=== PATIENT | male | born 1955 | race Caucasian/White ===

== ENCOUNTER 2019-11-24 17:45 | Inpatient (IN) ==
[2019-11-24 19:14] LABS: Hematocrit 38.6 % (37.5-50.1); Hemoglobin 13.2 g/dL (12.9-16.9); Mean Corpuscular HGB Conc 34.2 g/dL (31.6-35.5); Mean Corpuscular Hemoglobin 29.6 pg (28.0-33.3); Mean Corpuscular Volume 86.5 fL (83.0-100.0); Mean Platelet Volume 8.7 fL (9.4-12.4); Platelet Count 168 K/mcL (140-400); Red Blood Count 4.46 M/mcL (4.19-5.50); Red Cell Distribution Width 12.5 % (11.5-14.5)
[2019-11-24 19:31] LABS: Calcium 8.1 mg/dL (8.6-10.3); Potassium 2.9 mEq/L (3.5-5.1)
[2019-11-24] MEDS ORDERED: Potassium Effervescent 25 MEQ TABLET.EFF PO ONE (19:38)
[2019-11-24] MEDS ORDERED: Naloxone 0.4 MG/ML INJ IVP PRN (20:02)
[2019-11-24] MEDS ORDERED: Dexamethasone 4 MG/ML VIAL IVP ONE (20:02)
[2019-11-24] MEDS: Acetaminophen 325 MG TABLET PO PRN (20:23)
[2019-11-24] MEDS: Azithromycin 500 MG in 0.9 % Sodium Chloride 250 ML IVPB SCH (21:38)
[2019-11-24] MEDS: cefTRIAXone 1,000 MG in 0.9 % Sodium Chloride Mini Bag 100 ML IVPB SCH (21:39)
[2019-11-24] MEDS: *HR* Promethazine 25 MG/ML VIAL IVP PRN (22:48)
[2019-11-25] MEDS ORDERED: 0.9 % Sodium Chloride 1,000 ML IVC ONE (00:34)
[2019-11-25 04:01] LABS: Magnesium 2.3 mg/dL (1.6-2.6)
[2019-11-25 04:03] LABS: Troponin I < 0.03 ng/mL (< 0.04)
[2019-11-25 05:50] LABS: Basophils % 0.1 %; Hematocrit 39.1 % (37.5-50.1); Hemoglobin 13.2 g/dL (12.9-16.9); INR 1.1; Immature Granulocytes % 0.5 % (0-4); Lymphocytes # 0.5 K/mcL (0.6-4.6); Lymphocytes % 6.4 %; Mean Corpuscular HGB Conc 33.8 g/dL (31.6-35.5); Mean Corpuscular Hemoglobin 29.9 pg (28.0-33.3); Mean Corpuscular Volume 88.7 fL (83.0-100.0); Mean Platelet Volume 8.8 fL (9.4-12.4); Monocytes # 0.1 K/mcL (0.0-1.3); Monocytes % 1.4 %; Neutrophils # 7.4 K/mcL (1.6-8.9); Platelet Count 171 K/mcL (140-400); Prothrombin Time 12.4 Seconds (9.4-12.1); Red Blood Count 4.41 M/mcL (4.19-5.50); Red Cell Distribution Width 12.6 % (11.5-14.5); Segmented Neutrophils % 91.6 %; White Blood Count 8.1 K/mcL (4.3-11.1)
[2019-11-25 06:10] LABS: Albumin 3.6 g/dL (3.5-5.7); Albumin/Globulin Ratio 1.1 (1.1-2.2); Bilirubin,Total 0.5 mg/dL (0.3-1.0); Calcium 7.9 mg/dL (8.6-10.3); Globulin 3.2 g/dL (2.4-3.5); Phosphorous 2.3 mg/dL (2.7-4.5); Potassium 3.2 mEq/L (3.5-5.1); Total Protein 6.8 g/dL (6.4-8.9)
[2019-11-25 06:22] LABS: Thyroid Stimulating Hormone 0.7 mcIU/mL (0.340-5.600)
[2019-11-25] MEDS ORDERED: amLODIPine 5 MG TABLET PO SCH (09:00)
[2019-11-25] MEDS: ALPRAZolam 0.5 MG TABLET PO SCH ×2 (09:04→20:45)
[2019-11-25] MEDS: Dexamethasone 4 MG/ML VIAL IVP SCH (09:04)
[2019-11-25 10:43] LABS: ABG Base Excess 0 mEq/L (-2 to 3); ABG HCO3 25 mEq/L (21-27); ABG Oxygen Saturation 88 % (95-98); ABG PCO2 39 mmHg (35-45); ABG PH 7.41 pH Units (7.32-7.45); ABG PO2 54 mmHg (85-104); ABG TCO2 26 mEq/L (20-26)
[2019-11-25] MEDS ORDERED: 0.45 % Sodium Chloride w/KCl 20 MEQ/1,000 ML MLS IVC SCH (12:00)
[2019-11-25] MEDS: polyethylene glycoL 3350 17 GM POWD.PACK PO SCH ×4 (14:05→21:25)
[2019-11-25] MEDS: *HR* Heparin 5,000 UNIT/ML VIAL SQ SCH ×2 (14:07→21:58)
[2019-11-25] MEDS ORDERED: Remdesivir 200 MG in 0.9 % Sodium Chloride 210 ML IVPB ONE (18:00)
[2019-11-25] MEDS: cefTRIAXone 1,000 MG in 0.9 % Sodium Chloride Mini Bag 100 ML IVPB SCH (20:46)
[2019-11-25] MEDS ORDERED: traZODone 50 MG TABLET PO SCH (21:00)
[2019-11-25] MEDS: Azithromycin 500 MG in 0.9 % Sodium Chloride 250 ML IVPB SCH (21:57)
[2019-11-25] MEDS: Acetaminophen 325 MG TABLET PO PRN (22:05)
[2019-11-26] MEDS: *HR* Heparin 5,000 UNIT/ML VIAL SQ SCH ×3 (04:59→22:12)
[2019-11-26 06:40] LABS: INR 1.1; Prothrombin Time 12.2 Seconds (9.4-12.1)
[2019-11-26 06:44] LABS: Basophils % 0.1 %; Hematocrit 35.6 % (37.5-50.1); Hemoglobin 12.2 g/dL (12.9-16.9); Immature Granulocytes % 0.5 % (0-4); Lymphocytes # 0.7 K/mcL (0.6-4.6); Lymphocytes % 5.5 %; Mean Corpuscular HGB Conc 34.3 g/dL (31.6-35.5); Mean Corpuscular Hemoglobin 30.4 pg (28.0-33.3); Mean Corpuscular Volume 88.8 fL (83.0-100.0); Mean Platelet Volume 8.8 fL (9.4-12.4); Monocytes # 0.8 K/mcL (0.0-1.3); Monocytes % 6.1 %; Platelet Count 218 K/mcL (140-400); Red Blood Count 4.01 M/mcL (4.19-5.50); Red Cell Distribution Width 12.6 % (11.5-14.5); Segmented Neutrophils % 87.8 %
[2019-11-26 06:47] LABS: Neutrophils # 11.8 K/mcL (1.6-8.9); White Blood Count 13.4 K/mcL (4.3-11.1)
[2019-11-26 07:02] LABS: Alanine Aminotransferase 30 Units/L (7-52); Albumin 3.2 g/dL (3.5-5.7); Alkaline Phosphatase 37 Units/L (34-104); Aspartate Amino Transferase 33 Units/L (13-39); BUN/Creatinine Ratio 31 (6-26); Bilirubin,Total 0.4 mg/dL (0.3-1.0); Blood Urea Nitrogen 34 mg/dL (8-23); Calcium 7.9 mg/dL (8.6-10.3); Carbon Dioxide 25 mEq/L (23-29); Chloride 106 mEq/L (98-107); Globulin 3.2 g/dL (2.4-3.5); Glucose 145 mg/dL (70-105); Osmolality,Calculated 296 (280-300); Potassium 3.4 mEq/L (3.5-5.1); Sodium 138 mEq/L (136-145); Total Protein 6.4 g/dL (6.4-8.9); eGFR For African Americans > 60 (> 60); eGFR For Non-African Americans > 60 (> 60)
[2019-11-26] MEDS: polyethylene glycoL 3350 17 GM POWD.PACK PO SCH ×3 (09:32→22:10)
[2019-11-26] MEDS: Dexamethasone 4 MG/ML VIAL IVP SCH (09:32)
[2019-11-26] MEDS: ALPRAZolam 0.5 MG TABLET PO SCH (09:33)
[2019-11-26] MEDS ORDERED: Furosemide 20 MG/2 ML VIAL IVP ONE (11:34)
[2019-11-26] MEDS ORDERED: ALPRAZolam 0.5 MG TABLET PO SCH (18:00)
[2019-11-26] MEDS ORDERED: Remdesivir 100 MG in 0.9 % Sodium Chloride 230 ML IVPB SCH (18:00)
[2019-11-26] MEDS: HYDROcodone BIT/Homatropine LQ 5 MG/5 ML UDC PO PRN (18:18)
[2019-11-26] MEDS ORDERED: 0.9 % Sodium Chloride 500 ML ONE (19:42)
[2019-11-26] MEDS: traZODone 50 MG TABLET PO SCH (22:12)
[2019-11-26] MEDS: Remdesivir 100 MG in 0.9 % Sodium Chloride 230 ML IVPB SCH (22:42)
[2019-11-27] MEDS: cefTRIAXone 1,000 MG in 0.9 % Sodium Chloride Mini Bag 100 ML IVPB SCH ×2 (00:17→19:44)
[2019-11-27] MEDS: Azithromycin 500 MG in 0.9 % Sodium Chloride 250 ML IVPB SCH (00:55)
[2019-11-27 03:57] LABS: Hematocrit 35.1 % (37.5-50.1); Hemoglobin 11.8 g/dL (12.9-16.9); Mean Corpuscular HGB Conc 33.6 g/dL (31.6-35.5); Mean Corpuscular Hemoglobin 29.7 pg (28.0-33.3); Mean Corpuscular Volume 88.4 fL (83.0-100.0); Mean Platelet Volume 8.7 fL (9.4-12.4); Platelet Count 250 K/mcL (140-400); Red Blood Count 3.97 M/mcL (4.19-5.50); Red Cell Distribution Width 12.9 % (11.5-14.5); White Blood Count 9.5 K/mcL (4.3-11.1)
[2019-11-27 04:03] LABS: INR 1.1; Prothrombin Time 12.6 Seconds (9.4-12.1)
[2019-11-27 04:25] LABS: Alanine Aminotransferase 32 Units/L (7-52); Albumin 3.2 g/dL (3.5-5.7); Albumin/Globulin Ratio 1.1 (1.1-2.2); Alkaline Phosphatase 40 Units/L (34-104); Aspartate Amino Transferase 26 Units/L (13-39); BUN/Creatinine Ratio 31 (6-26); Bilirubin,Total 0.4 mg/dL (0.3-1.0); Blood Urea Nitrogen 25 mg/dL (8-23); Calcium 7.6 mg/dL (8.6-10.3); Carbon Dioxide 22 mEq/L (23-29); Chloride 107 mEq/L (98-107); Glucose 134 mg/dL (70-105); Osmolality,Calculated 296 (280-300); Potassium 3.5 mEq/L (3.5-5.1); Sodium 140 mEq/L (136-145); Total Protein 6.2 g/dL (6.4-8.9); eGFR For African Americans > 60 (> 60); eGFR For Non-African Americans > 60 (> 60)
[2019-11-27] MEDS: *HR* Heparin 5,000 UNIT/ML VIAL SQ SCH ×3 (05:03→21:46)
[2019-11-27] MEDS: Dexamethasone 4 MG/ML VIAL IVP SCH (07:50)
[2019-11-27] MEDS: polyethylene glycoL 3350 17 GM POWD.PACK PO SCH ×2 (07:51→19:45)
[2019-11-27] MEDS: HYDROcodone BIT/Homatropine LQ 5 MG/5 ML UDC PO PRN (08:11)
[2019-11-27] MEDS ORDERED: 0.9 % Sodium Chloride 500 ML ONE (10:27)
[2019-11-27] MEDS: ALPRAZolam 0.5 MG TABLET PO SCH ×3 (10:52→19:44)
[2019-11-27] MEDS: traZODone 50 MG TABLET PO SCH (19:44)
[2019-11-27] MEDS: Azithromycin 250 MG TABLET PO SCH (19:44)
[2019-11-27] MEDS: Ipratropium 1 PUFF INHALER IH SCH (19:56)
[2019-11-27] MEDS: Remdesivir 100 MG in 0.9 % Sodium Chloride 230 ML IVPB SCH (21:45)
[2019-11-27] MEDS: *HR* Promethazine 25 MG/ML VIAL IVP PRN (22:00)
[2019-11-28] MEDS: Ipratropium 1 PUFF INHALER IH SCH ×6 (00:09→20:24)
[2019-11-28] MEDS: *HR* Heparin 5,000 UNIT/ML VIAL SQ SCH ×3 (04:57→21:33)
[2019-11-28 06:04] LABS: Hematocrit 35.1 % (37.5-50.1); Mean Corpuscular HGB Conc 34.2 g/dL (31.6-35.5); Mean Corpuscular Hemoglobin 30.1 pg (28.0-33.3); Mean Platelet Volume 8.3 fL (9.4-12.4); Platelet Count 280 K/mcL (140-400); Red Blood Count 3.99 M/mcL (4.19-5.50); White Blood Count 8.7 K/mcL (4.3-11.1)
[2019-11-28 06:13] LABS: INR 1.1; Prothrombin Time 12.5 Seconds (9.4-12.1)
[2019-11-28 06:27] LABS: Alanine Aminotransferase 43 Units/L (7-52); Albumin 3.1 g/dL (3.5-5.7); Alkaline Phosphatase 39 Units/L (34-104); Aspartate Amino Transferase 30 Units/L (13-39); BUN/Creatinine Ratio 29 (6-26); Bilirubin,Total 0.5 mg/dL (0.3-1.0); Blood Urea Nitrogen 23 mg/dL (8-23); Calcium 8.1 mg/dL (8.6-10.3); Carbon Dioxide 26 mEq/L (23-29); Chloride 107 mEq/L (98-107); Glucose 124 mg/dL (70-105); Magnesium 1.9 mg/dL (1.6-2.6); Osmolality,Calculated 297 (280-300); Phosphorous 2.9 mg/dL (2.7-4.5); Potassium 3.5 mEq/L (3.5-5.1); Sodium 141 mEq/L (136-145); Total Protein 6.1 g/dL (6.4-8.9); eGFR For African Americans > 60 (> 60); eGFR For Non-African Americans > 60 (> 60)
[2019-11-28] MEDS: Dexamethasone 4 MG/ML VIAL IVP SCH (08:54)
[2019-11-28] MEDS: ALPRAZolam 0.5 MG TABLET PO SCH (08:55)
[2019-11-28] MEDS: polyethylene glycoL 3350 17 GM POWD.PACK PO SCH ×2 (08:55→21:07)
[2019-11-28 09:21] LABS: C-Reactive Protein 30 mg/L (Less than 10)
[2019-11-28] MEDS ORDERED: 0.9 % Sodium Chloride 250 ML ONE (12:14)
[2019-11-28] MEDS: Furosemide 40 MG/4 ML VIAL IVP SCH ×2 (12:38→19:40)
[2019-11-28] MEDS: ALPRAZolam 0.25 MG TABLET PO SCH ×2 (15:19→19:40)
[2019-11-28] MEDS: Azithromycin 250 MG TABLET PO SCH (19:40)
[2019-11-28] MEDS: cefTRIAXone 1,000 MG in 0.9 % Sodium Chloride Mini Bag 100 ML IVPB SCH (19:40)
[2019-11-28] MEDS: Remdesivir 100 MG in 0.9 % Sodium Chloride 230 ML IVPB SCH (21:33)
[2019-11-29] MEDS: Ipratropium 1 PUFF INHALER IH SCH ×7 (00:04→23:58)
[2019-11-29] MEDS: *HR* Heparin 5,000 UNIT/ML VIAL SQ SCH ×3 (04:44→21:10)
[2019-11-29 06:33] LABS: Hematocrit 39.7 % (37.5-50.1); Hemoglobin 13.4 g/dL (12.9-16.9); Mean Corpuscular HGB Conc 33.8 g/dL (31.6-35.5); Mean Corpuscular Hemoglobin 29.8 pg (28.0-33.3); Mean Corpuscular Volume 88.2 fL (83.0-100.0); Mean Platelet Volume 8.5 fL (9.4-12.4); Platelet Count 323 K/mcL (140-400); Red Cell Distribution Width 12.8 % (11.5-14.5); White Blood Count 6.2 K/mcL (4.3-11.1)
[2019-11-29 06:39] LABS: INR 1.2; Prothrombin Time 13.2 Seconds (9.4-12.1)
[2019-11-29 06:54] LABS: Alanine Aminotransferase 53 Units/L (7-52); Albumin 3.5 g/dL (3.5-5.7); Alkaline Phosphatase 44 Units/L (34-104); Aspartate Amino Transferase 32 Units/L (13-39); BUN/Creatinine Ratio 27 (6-26); Bilirubin,Total 0.7 mg/dL (0.3-1.0); Blood Urea Nitrogen 25 mg/dL (8-23); Calcium 8.5 mg/dL (8.6-10.3); Carbon Dioxide 27 mEq/L (23-29); Chloride 100 mEq/L (98-107); Globulin 3.4 g/dL (2.4-3.5); Glucose 107 mg/dL (70-105); Osmolality,Calculated 291 (280-300); Potassium 3.3 mEq/L (3.5-5.1); Sodium 138 mEq/L (136-145); Total Protein 6.9 g/dL (6.4-8.9); eGFR For African Americans > 60 (> 60); eGFR For Non-African Americans > 60 (> 60)
[2019-11-29] MEDS: Furosemide 40 MG/4 ML VIAL IVP SCH ×2 (07:55→21:11)
[2019-11-29] MEDS: polyethylene glycoL 3350 17 GM POWD.PACK PO SCH ×2 (07:55→21:12)
[2019-11-29] MEDS: Dexamethasone 4 MG/ML VIAL IVP SCH ×2 (07:56→21:12)
[2019-11-29] MEDS: ALPRAZolam 0.25 MG TABLET PO SCH ×3 (07:56→21:10)
[2019-11-29] MEDS: cefTRIAXone 1,000 MG in 0.9 % Sodium Chloride Mini Bag 100 ML IVPB SCH (21:09)
[2019-11-29] MEDS: Azithromycin 250 MG TABLET PO SCH (21:11)
[2019-11-29] MEDS: Remdesivir 100 MG in 0.9 % Sodium Chloride 230 ML IVPB SCH (22:01)
[2019-11-30 02:01] LABS: Hemoglobin 14.8 g/dL (12.9-16.9); Mean Corpuscular HGB Conc 34.4 g/dL (31.6-35.5); Mean Corpuscular Hemoglobin 30.3 pg (28.0-33.3); Mean Corpuscular Volume 87.9 fL (83.0-100.0); Mean Platelet Volume 8.3 fL (9.4-12.4); Platelet Count 329 K/mcL (140-400); Red Blood Count 4.89 M/mcL (4.19-5.50); Red Cell Distribution Width 12.8 % (11.5-14.5); White Blood Count 6.7 K/mcL (4.3-11.1)
[2019-11-30 02:05] LABS: INR 1.1; Prothrombin Time 12.1 Seconds (9.4-12.1)
[2019-11-30 02:23] LABS: Alanine Aminotransferase 51 Units/L (7-52); Albumin 3.5 g/dL (3.5-5.7); Albumin/Globulin Ratio 0.9 (1.1-2.2); Alkaline Phosphatase 52 Units/L (34-104); Aspartate Amino Transferase 26 Units/L (13-39); BUN/Creatinine Ratio 31 (6-26); Bilirubin,Total 0.7 mg/dL (0.3-1.0); Blood Urea Nitrogen 28 mg/dL (8-23); C-Reactive Protein 16 mg/L (Less than 10); Calcium 8.5 mg/dL (8.6-10.3); Carbon Dioxide 26 mEq/L (23-29); Chloride 101 mEq/L (98-107); Globulin 3.7 g/dL (2.4-3.5); Glucose 129 mg/dL (70-105); Lactate Dehydrogenase 250 Units/L (140-271); Magnesium 1.7 mg/dL (1.6-2.6); Osmolality,Calculated 293 (280-300); Phosphorous 3.2 mg/dL (2.7-4.5); Potassium 3.5 mEq/L (3.5-5.1); Sodium 138 mEq/L (136-145); Total Protein 7.2 g/dL (6.4-8.9); eGFR For African Americans > 60 (> 60); eGFR For Non-African Americans > 60 (> 60)
[2019-11-30 02:38] LABS: Ferritin 579 ng/mL (20-250)
[2019-11-30] MEDS: Ipratropium 1 PUFF INHALER IH SCH ×6 (03:39→23:54)
[2019-11-30] MEDS: *HR* Heparin 5,000 UNIT/ML VIAL SQ SCH ×2 (05:05→14:40)
[2019-11-30] MEDS: Furosemide 40 MG/4 ML VIAL IVP SCH ×2 (10:13→20:04)
[2019-11-30] MEDS: Dexamethasone 4 MG/ML VIAL IVP SCH ×2 (10:15→20:03)
[2019-11-30] MEDS: ALPRAZolam 0.25 MG TABLET PO SCH ×3 (10:16→20:05)
[2019-11-30] MEDS: polyethylene glycoL 3350 17 GM POWD.PACK PO SCH ×2 (10:16→20:35)
[2019-11-30] MEDS: *HR* Promethazine 25 MG/ML VIAL IVP PRN (14:46)
[2019-11-30] MEDS: Azithromycin 250 MG TABLET PO SCH (20:04)
[2019-11-30] MEDS: cefTRIAXone 1,000 MG in 0.9 % Sodium Chloride Mini Bag 100 ML IVPB SCH (20:05)
[2019-12-01] MEDS: Ipratropium 1 PUFF INHALER IH SCH ×5 (03:18→22:00)
[2019-12-01] MEDS: *HR* Enoxaparin 40 MG/0.4 ML SYRINGE SQ SCH (05:50)
[2019-12-01 05:55] LABS: Hematocrit 42.2 % (37.5-50.1); Hemoglobin 14.3 g/dL (12.9-16.9); Mean Corpuscular HGB Conc 33.9 g/dL (31.6-35.5); Mean Corpuscular Hemoglobin 30.1 pg (28.0-33.3); Mean Corpuscular Volume 88.8 fL (83.0-100.0); Mean Platelet Volume 8.2 fL (9.4-12.4); Platelet Count 332 K/mcL (140-400); Red Blood Count 4.75 M/mcL (4.19-5.50); Red Cell Distribution Width 12.7 % (11.5-14.5); White Blood Count 8.2 K/mcL (4.3-11.1)
[2019-12-01 05:58] LABS: INR 1.1; Prothrombin Time 12.6 Seconds (9.4-12.1)
[2019-12-01] MEDS: *HR* Promethazine 25 MG/ML VIAL IVP PRN ×2 (06:07→15:23)
[2019-12-01 06:12] LABS: Alanine Aminotransferase 44 Units/L (7-52); Albumin 3.5 g/dL (3.5-5.7); Alkaline Phosphatase 50 Units/L (34-104); Aspartate Amino Transferase 20 Units/L (13-39); BUN/Creatinine Ratio 37 (6-26); Bilirubin,Total 0.7 mg/dL (0.3-1.0); Blood Urea Nitrogen 37 mg/dL (8-23); Calcium 8.8 mg/dL (8.6-10.3); Carbon Dioxide 26 mEq/L (23-29); Chloride 99 mEq/L (98-107); Globulin 3.4 g/dL (2.4-3.5); Glucose 143 mg/dL (70-105); Osmolality,Calculated 291 (280-300); Potassium 3.6 mEq/L (3.5-5.1); Sodium 135 mEq/L (136-145); Total Protein 6.9 g/dL (6.4-8.9); eGFR For African Americans > 60 (> 60); eGFR For Non-African Americans > 60 (> 60)
[2019-12-01 06:13] LABS: Phosphorous 4.6 mg/dL (2.7-4.5)
[2019-12-01] MEDS: Dexamethasone 4 MG/ML VIAL IVP SCH ×2 (08:43→21:15)
[2019-12-01] MEDS: Furosemide 40 MG/4 ML VIAL IVP SCH (08:43)
[2019-12-01] MEDS: ALPRAZolam 0.25 MG TABLET PO SCH ×3 (08:44→21:16)
[2019-12-01] MEDS: polyethylene glycoL 3350 17 GM POWD.PACK PO SCH ×3 (08:44→21:16)
[2019-12-01] MEDS ORDERED: traZODone 50 MG TABLET PO PRN (11:50)
[2019-12-02] MEDS: Ipratropium 1 PUFF INHALER IH SCH ×2 (03:51→10:12)
[2019-12-02] MEDS ORDERED: Artificial Tears SOLN 15 ML BOTTLE BOTH EYES PRN (04:34)
[2019-12-02] MEDS: *HR* Enoxaparin 40 MG/0.4 ML SYRINGE SQ SCH (05:22)
[2019-12-02 06:43] LABS: Hematocrit 42.9 % (37.5-50.1); Hemoglobin 14.3 g/dL (12.9-16.9); Mean Corpuscular HGB Conc 33.3 g/dL (31.6-35.5); Mean Corpuscular Hemoglobin 29.7 pg (28.0-33.3); Mean Platelet Volume 8.4 fL (9.4-12.4); Platelet Count 358 K/mcL (140-400); Red Blood Count 4.82 M/mcL (4.19-5.50); Red Cell Distribution Width 12.9 % (11.5-14.5); White Blood Count 9.2 K/mcL (4.3-11.1)
[2019-12-02 07:03] LABS: Alanine Aminotransferase 36 Units/L (7-52); Albumin 3.5 g/dL (3.5-5.7); Albumin/Globulin Ratio 1.1 (1.1-2.2); Alkaline Phosphatase 50 Units/L (34-104); Aspartate Amino Transferase 14 Units/L (13-39); BUN/Creatinine Ratio 35 (6-26); Bilirubin,Total 0.8 mg/dL (0.3-1.0); Blood Urea Nitrogen 41 mg/dL (8-23); Calcium 8.9 mg/dL (8.6-10.3); Carbon Dioxide 28 mEq/L (23-29); Chloride 100 mEq/L (98-107); Globulin 3.3 g/dL (2.4-3.5); Glucose 135 mg/dL (70-105); Osmolality,Calculated 294 (280-300); Potassium 3.7 mEq/L (3.5-5.1); Sodium 136 mEq/L (136-145); Total Protein 6.8 g/dL (6.4-8.9); eGFR For African Americans > 60 (> 60); eGFR For Non-African Americans > 60 (> 60)
[2019-12-02 07:06] LABS: Magnesium 2.1 mg/dL (1.6-2.6); Phosphorous 4.5 mg/dL (2.7-4.5)
[2019-12-02] MEDS: Dexamethasone 4 MG/ML VIAL IVP SCH (07:33)
[2019-12-02] MEDS: polyethylene glycoL 3350 17 GM POWD.PACK PO SCH (07:33)
[2019-12-02] MEDS: ALPRAZolam 0.25 MG TABLET PO SCH (07:36)
[2019-12-02] MEDS ORDERED: Furosemide 40 MG/4 ML VIAL IVP SCH (09:00)
[2019-12-02 10:48] VITALS: BP 134/80
[2019-12-02 10:51] LABS: ABG Base Excess 2 mEq/L (-2 to 3); ABG HCO3 26 mEq/L (21-27); ABG Oxygen Saturation 92 % (95-98); ABG PCO2 38 mmHg (35-45); ABG PH 7.45 pH Units (7.32-7.45); ABG PO2 60 mmHg (85-104); ABG TCO2 27 mEq/L (20-26)
== END 2019-12-02 13:10 | disposition home or self-care (01) | DRG 177 ==
LOC: 2NENU 17:45 → EMEROOARM 17:45 → SUATTDRO 20:23 → 2NENU 21:14 → SUATTDRO 11-25 16:07
PROVIDERS: ADMIT Student in an Organized Health Care Education/Training Program; ATTEND Internal Medicine